=== PATIENT | male | born 1965 | race Caucasian/White ===

== ENCOUNTER → 2019-08-01 | Outpatient (CLI) | payer BC ==
[~2019-08-01] VITALS: Ht 170.2 cm; Wt 75.5 kg
[~2019-08-01] MED LIST: PRILOSEC 20MG20 MG PO; VOLTAREN-XR100 M1 PO
[2019-08-01 16:00] VITALS: BP 125/85
== END ==
LOC: AMSURD 15:06
DX: R00.0 Tachycardia, unspecified (principal)

== ENCOUNTER → 2019-08-12 | Outpatient (CLI) | payer BC ==
[2019-08-01 16:00] VITALS: BP 125/85
== END ==
LOC: RAD 16:00
DX: R06.02 Shortness of breath (principal)
CPT/HCPCS: Q9967

== ENCOUNTER → 2021-02-11 | Outpatient (CLI) | payer BC ==
[2019-08-01 16:00] VITALS: BP 125/85
[2021-02-11 13:19] LABS: BASO # 0.06 (0.02-0.10); EOS # 0.17 (0.04-0.40); HEMATOCRIT 41.1 % (42.0-52.0); HEMOGLOBIN 14.2 g/dL (13.5-18.0); LYMPH# 1.16 (1.50-4.00); MEAN CELL VOLUME 93 fl (78-100); MEAN CORPUSCULAR HEMOGLOBIN 32 pg (27-31); MEAN CORPUSCULAR HGB CONC 35 g/dL (33-37); MONO # 0.45 (0.20-0.80); NEU # 3.82 (1.40-6.50); PLATELET COUNT 231 K/mm3 (130-400); RED BLOOD COUNT 4.44 M/mm3 (4.20-5.60); WHITE BLOOD COUNT 5.7 K/mm3 (4.8-10.8)
[2021-02-11 13:25] LABS: POTASSIUM 3.9 mmol/L (3.5-5.1)
[2021-02-11 13:26] LABS: ALBUMIN 4.3 g/dL (3.5-5.0)
[2021-02-11 13:27] LABS: CALCIUM 9.3 mg/dL (8.3-10.5)
[2021-02-11 13:28] LABS: TOTAL PROTEIN 7.1 g/dL (6.4-8.3)
[2021-02-11 13:30] LABS: TOTAL BILIRUBIN 0.5 mg/dL (0.2-1.2)
[2021-02-11 14:23] LABS: ERYTHROCYTE SEDIMENTATION RATE 2 mm/hr (0-20)
== END ==
LOC: LAB 12:53
PROVIDERS: Internal Medicine
DX: Z00.00 Encounter for general adult medical examination without abnormal findings (principal); Z12.5 Encounter for screening for malignant neoplasm of prostate; R94.6 Abnormal results of thyroid function studies

== ENCOUNTER → 2021-02-22 | Outpatient (CLI) | payer BC ==
[2019-08-01 16:00] VITALS: BP 125/85
== END ==
LOC: CARDREHAB 09:47 → PT 15:55
DX: R06.00 Dyspnea, unspecified (principal)
CPT/HCPCS: A9500

== ENCOUNTER → 2024-09-06 | Outpatient (CLI) | payer BC ==
[~2024-09-06] MED LIST changes: +Iohexol 300 - 100 ML VIAL IV ONE
[2024-09-06 09:50] LABS: ALBUMIN 4.7 g/dL (3.5-5.0)
[2024-09-06 09:51] LABS: CALCIUM 10.1 mg/dL (8.3-10.5)
[2024-09-06 09:52] LABS: TOTAL PROTEIN 8.1 g/dL (6.4-8.3)
[2024-09-06 09:54] LABS: TOTAL BILIRUBIN 0.5 mg/dL (0.2-1.2)
[2024-09-06 09:58] LABS: MAGNESIUM 2.14 mg/dL (1.60-2.60)
[2024-09-06 09:59] LABS: BASO # 0.04 K/mm3 (0.02-0.10); EOS # 0.09 K/mm3 (0.04-0.40); EOS % 0.8 % (0.0-4.0); HEMATOCRIT 45.1 % (42.0-52.0); HEMOGLOBIN 14.9 g/dL (13.5-18.0); LYMPH# 0.96 K/mm3 (1.50-4.00); MEAN CELL VOLUME 99 fl (78-100); MEAN CORPUSCULAR HEMOGLOBIN 33 pg (27-31); MEAN CORPUSCULAR HGB CONC 33 g/dL (33-37); MEAN PLATELET VOLUME 10.5 fl (7.4-10.4); MONO # 0.77 K/mm3 (0.20-0.80); NEU # 9.11 K/mm3 (1.40-6.50); PLATELET COUNT 268 K/mm3 (130-400); RED BLOOD COUNT 4.55 M/mm3 (4.20-5.60); RED CELL DISTRIBUTION WIDTH 12.4 % (11.5-14.5)
[2024-09-06 10:52] LABS: PH-URINE 6.5 (5.0 - 8.0); URINE APPEARANCE CLEAR (CLEAR); URINE COLOR YELLOW (YELLOW); URINE GLUCOSE NEGATIVE (NEGATIVE); URINE PROTEIN(semi-quant) NEGATIVE (NEGATIVE)
[2024-09-06 10:53] LABS: URINE BILIRUBIN NEGATIVE (NEGATIVE); URINE BLOOD NEGATIVE (NEGATIVE); URINE KETONE NEGATIVE (NEGATIVE); URINE LEUKOCYTE ESTERASE NEGATIVE (NEGATIVE); URINE MUCUS PRESENT (NOT PRESENT); URINE NITRATE NEGATIVE (NEGATIVE); URINE WBC 0-1 /hpf (0-3)
== END ==
LOC: RAD 09:13 → LAB 09:13
PROVIDERS: Internal Medicine
DX: K90.9 Intestinal malabsorption, unspecified (principal); R25.1 Tremor, unspecified
CPT/HCPCS: Q9967